=== PATIENT | male | born 1975 | race African-American/Black ===

== ENCOUNTER 2020-08-29 20:00 | Emergency (ER) | payer OTHER ==
[~2020-08-29] VITALS: Ht 177.8 cm; Wt 98.6 kg
[2020-08-29] MEDS ORDERED: AMLODIPINE BESY10 MG PO (20:30)
[2020-08-29] MEDS ORDERED: LIPITOR20 MG PO (20:31)
[2020-08-29] MEDS ORDERED: HYDROCHLOROT25 MG PO (20:31)
[2020-08-29] MEDS ORDERED: ASPIRIN ADULT L81 M2 PO (20:32)
[2020-08-29] MEDS ORDERED: LOSARTAN POTASS50 MG PO (20:33)
[2020-08-29 20:38] LABS: HEMATOCRIT 41.1 % (39.0-50.0); HEMOGLOBIN 13.6 g/dl (14.0-18.0); IMMATURE GRANULOCYTES 0.4 % (0.0-5.0); MEAN CELL VOLUME 79.8 fL CALC (80.0-100.0); MEAN CORPUSCULAR HGB 26.4 pG CALC (26.0-32.0); MEAN CORPUSCULAR HGB CONC 33.1 g/dL CAL (32.0-36.0); NEUT# 2.47 thou/uL (1.82-7.42); RED BLOOD COUNT 5.15 mill/uL (4.70-6.10); RED CELL DISTRI WIDTH 12.4 % (11.5-15.5)
[2020-08-29 20:47] LABS: ALBUMIN 4.1 g/dL (3.2-5.0); ALKALINE PHOSPHATASE 68 u/l (38-126); ANION GAP 11 (6-22 (CALC)); BILIRUBIN, TOTAL 0.2 mg/dL (0.0-1.4); BUN 10 mg/dL (9-20); BUN/CREATININE RATIO 9 (12-20 (CALC)); CARBON DIOXIDE 29 mmol/l (22-30); CHLORIDE 104 mmol/l (95-108); CREATININE 1.2 mg/dL (0.7-1.3); GFR > 60 ML/MIN (>=60 (CALC)); GFR FOR AFR.AMER. > 60 ML/MIN (>=60 (CALC)); LIPASE 27 u/l (23-300); POTASSIUM 3.8 mmol/l (3.5-5.1); SGOT/AST 24 u/l (17-59); SODIUM 140 mmol/l (137-146); TOTAL PROTEIN 7.3 g/dL (6.3-8.2)
[2020-08-29 20:59] LABS: MYOGLOBIN 47 ng/mL (0 - 121)
[2020-08-29 21:03] VITALS: BP 130/78
[2020-08-29 21:05] LABS: D-DIMER 0.21 mg/L (0.19-0.60)
[2020-08-29 21:10] LABS: ACT PARTIAL THROMBO TIME 24.4 SECONDS (20.0-32.5); PROTHROMBIN TIME 10.4 SECONDS (9.0-12.5)
== END 2020-08-29 21:20 | disposition short-term general hospital (02) | DRG 282 ==
LOC: ED 20:00
PROVIDERS: Family Medicine
DX: I21.3 ST elevation (STEMI) myocardial infarction of unspecified site (principal); I10 Essential (primary) hypertension; E78.5 Hyperlipidemia, unspecified; Z20.822 Contact with and (suspected) exposure to COVID-19